=== PATIENT | male | born 1995 | race Two or more races ===

== ENCOUNTER 2022-02-26 21:51 | Emergency (ER) | payer MEDICAID, OTHER ==
[~2022-02-26] VITALS: Ht 177.8 cm; Wt 77.3 kg
[2022-02-26] MEDS ORDERED: OLAN10TA74 PO (22:03)
[2022-02-26] MEDS ORDERED: SERT-158 PO (22:03)
[2022-02-26 22:46] LABS: BASOPHILS % (AUTO) 0.8 % (0.0-2.0); EOSINOPHILS % (AUTO) 2.8 % (1.0-6.0); HEMATOCRIT 45.6 % (41-53); LYMPHOCYTES % (AUTO) 30.8 % (22.0-44.0); MEAN CORPUSCULAR HEMOGLOBIN 28.6 pg (26.0-34.0); MEAN CORPUSCULAR VOLUME 87 fL (80-100); MONOCYTES # (AUTO) 0.5 K/uL (0.1-1.0); MONOCYTES % (AUTO) 7.7 % (2.0-9.0); NEUTROPHILS # (AUTO) 3.8 K/uL (1.8-7.7); NEUTROPHILS % (AUTO) 57.9 % (40.0-70.0); PLATELET COUNT (AUTO) 230 K/uL (150-450); RED BLOOD CELL COUNT(AUTO) 5.26 MIL/uL (4.50-5.90); RED CELL DISTRIBUTION WIDTH 13.7 % (11.5-14.5)
[2022-02-26 22:56] LABS: ANION GAP 2 mmol/L (8-16); CALCIUM, TOTAL 9.3 mg/dL (8.8-10.5); CARBON DIOXIDE 33 mmol/L (22-29); CHLORIDE 101 mmol/L (98-107); CREATININE 0.85 mg/dL (0.60-1.30); GLUCOSE,RANDOM 78 mg/dL (70-110); POTASSIUM 4.4 mmol/L (3.5-5.1); SODIUM SERUM 136 mmol/L (136-145); UREA NITROGEN, BLOOD 17 mg/dL (7-18)
[2022-02-26 22:57] LABS: GLOMERULAR FILTR. RATE CALC > 60 mL/min (>60)
[2022-02-26 23:02] LABS: COVID AG,FIA SOURCE NASAL SWAB
[2022-02-26 23:02] LABS: ALANINE AMINOTRANSFERASE 22 U/L (12-78); ALBUMIN 3.9 g/dL (3.4-5.0); ALKALINE PHOSPHATASE 79 U/L (46-116); ASPARTATE AMINOTRANSFERASE 22 U/L (15-37); BILIRUBIN,TOTAL 0.2 mg/dL (0.1-1.0); LIPASE 156 U/L (73-393); TOTAL PROTEIN, SERUM 7.4 g/dL (6.4-8.2)
[2022-02-26 23:21] LABS: PROTHROMBIN TIME 10.2 SEC (9.4-11.6)
[2022-02-26 23:25] LABS: INFLUENZA TYPE A NEGATIVE FOR TYPE A (NEGATIVE); INFLUENZA TYPE B NEGATIVE FOR TYPE B (NEGATIVE)
[2022-02-27] MEDS ORDERED: METOCLOPRAMIDE HCL 5 MG/ML 2 ML VIAL IVP ONE
[2022-02-27] MEDS ORDERED: DiphenhydrAMINE HCL 50 MG/ML VIAL IVP ONE
[2022-02-27] MEDS ORDERED: KETOROLAC TROMETHAMINE 30 MG/ML VIAL IVP ONE
[2022-02-27] MEDS ORDERED: ACETAMINOPHEN 500 MG TABLET PO ONE
[2022-02-27] MEDS ORDERED: SODIUM CHLORIDE 0.9% 1,000 ML IV ONE
[2022-02-27 00:30] VITALS: BP 117/60
== END 2022-02-27 00:57 | disposition home or self-care (01) ==
LOC: EMS 21:52
DX: R51.9 Headache, unspecified (principal); R10.84 Generalized abdominal pain; F15.90 Other stimulant use, unspecified, uncomplicated; Z88.1 Allergy status to other antibiotic agents; Z20.822 Contact with and (suspected) exposure to COVID-19
CPT/HCPCS: 99284; 87426; 80053; 83690; 85025; 85610; 85730; 87804; 36415; 93005; 96374; 96361; 96375; J1200; J1885; J2765; J7030

== ENCOUNTER 2022-05-07 02:18 | Emergency (ER) | payer OTHER ==
[~2022-05-07] VITALS: Ht 170.2 cm; Wt 75.0 kg
[~2022-05-07 02:18] MED LIST: OLAN10TA74 PO; SERT-158 PO
[2022-05-07] MEDS ORDERED: LORazepam 1 MG TABLET PO ONE (03:30)
[2022-05-07 05:27] VITALS: BP 135/70
== END 2022-05-07 05:30 | disposition home or self-care (01) ==
LOC: EMS 02:19
DX: F41.9 Anxiety disorder, unspecified (principal); F15.10 Other stimulant abuse, uncomplicated
CPT/HCPCS: 99283

== ENCOUNTER 2022-09-03 05:08 | Inpatient (IN) | payer MEDICAID, OTHER ==
[~2022-09-03] VITALS: Ht 180.3 cm; Wt 61.9 kg
[2022-09-03 05:40] LABS: BASOPHILS % (AUTO) 0.8 % (0.0-2.0); EOSINOPHILS % (AUTO) 0.7 % (1.0-6.0); HEMATOCRIT 42.7 % (41-53); HEMOGLOBIN 14.4 g/dL (13.5-17.5); LYMPHOCYTES # (AUTO) 1.2 K/uL (1.0-4.8); LYMPHOCYTES % (AUTO) 17.4 % (22.0-44.0); MEAN CORPUSCULAR HGB CONC 33.8 G/dL (31.0-37.0); MEAN CORPUSCULAR VOLUME 86 fL (80-100); MONOCYTES # (AUTO) 0.4 K/uL (0.1-1.0); NEUTROPHILS # (AUTO) 5.2 K/uL (1.8-7.7); NEUTROPHILS % (AUTO) 75.1 % (40.0-70.0); PLATELET COUNT (AUTO) 223 K/uL (150-450); RED BLOOD CELL COUNT(AUTO) 4.98 MIL/uL (4.50-5.90); RED CELL DISTRIBUTION WIDTH 13.4 % (11.5-14.5)
[2022-09-03 05:49] LABS: ANION GAP 11 mmol/L (8-16); CARBON DIOXIDE 26 mmol/L (22-29); CHLORIDE 104 mmol/L (98-107); CREATININE 0.94 mg/dL (0.60-1.30); GLOMERULAR FILTR. RATE CALC > 60 mL/min (>60); GLUCOSE,RANDOM 103 mg/dL (70-110); POTASSIUM 3.3 mmol/L (3.5-5.1); SODIUM SERUM 141 mmol/L (136-145)
[2022-09-03 05:54] LABS: ALANINE AMINOTRANSFERASE 21 U/L (12-78); ALKALINE PHOSPHATASE 78 U/L (46-116); ASPARTATE AMINOTRANSFERASE 22 U/L (15-37); BILIRUBIN,TOTAL 0.5 mg/dL (0.1-1.0); TOTAL PROTEIN, SERUM 7.1 g/dL (6.4-8.2)
[2022-09-03 06:51] LABS: COVID AG,FIA SOURCE NASOPHARYNGEAL
[2022-09-03 11:34] VITALS: BP 118/65
[2022-09-03] MEDS: LORazepam 2 MG TABLET PO PRN (11:44)
[2022-09-03] MEDS ORDERED: HydrOXYzine PAMOATE 50 MG CAPSULE PO PRN (12:00)
[2022-09-03] MEDS ORDERED: ACETAMINOPHEN 325 MG TABLET PO PRN (12:00)
[2022-09-03] MEDS ORDERED: LOPERAMIDE HCL 2 MG CAPSULE PO PRN (12:00)
[2022-09-03] MEDS ORDERED: PALIPERIDONE PALMITATE 234 MG/1.5 ML SYRINGE IM ONE (12:00)
[2022-09-03] MEDS ORDERED: TUBERCULIN, PURIFIED PROTEIN DERIVATIVE 5 TU/0.1 ML SYRINGE ID ONE (12:00)
[2022-09-03] MEDS ORDERED: MAGNESIUM HYDROXIDE SUSPENSION 30 ML UDCUP PO PRN (12:00)
[2022-09-03] MEDS ORDERED: MAG HYDROX/AL HYDROX/SIMETH ES 30 ML SUSPENSION UDCUP PO PRN (12:00)
[2022-09-03] MEDS ORDERED: PROMETHAZINE HCL 25 MG TABLET PO PRN (12:00)
[2022-09-03] MEDS ORDERED: GuaiFENesin/D-METHORPHAN [SUGAR-FREE] 200-20MG/10 ML SYRUP UDCUP PO PRN (12:00)
[2022-09-03] MEDS: OLANZapine 5 MG RAPDIS TABLET PO PRN (12:34)
[2022-09-03 16:09] VITALS: BP 113/70
[2022-09-03 16:10] VITALS: BP 113/70
[2022-09-03] MEDS: THIAMINE 100 MG TABLET PO SCH (18:33)
[2022-09-03] MEDS: MELATONIN 5 MG TABLET PO SCH (20:30)
[2022-09-03] MEDS: OLANZapine 5 MG RAPDIS TABLET PO SCH (20:30)
[2022-09-03] MEDS ORDERED: POTASSIUM CHLORIDE 20 MEQ ER TABLET PO ONE (21:15)
[2022-09-03 22:00] VITALS: BP 103/67
[2022-09-04 06:57] LABS: ANION GAP 7 mmol/L (8-16); CALCIUM, TOTAL 8.9 mg/dL (8.8-10.5); CARBON DIOXIDE 28 mmol/L (22-29); CHLORIDE 105 mmol/L (98-107); CREATININE 0.84 mg/dL (0.60-1.30); GLOMERULAR FILTR. RATE CALC > 60 mL/min (>60); GLUCOSE,RANDOM 90 mg/dL (70-110); SODIUM SERUM 140 mmol/L (136-145)
[2022-09-04 06:58] LABS: HEMOGLOBIN A1C 5.6 % (3.8-5.6)
[2022-09-04 07:04] LABS: CHOL/HDL RATIO 2.8 (4.2-7.3); FREE T4 (FREE THYROXINE) 0.91 ng/dL (0.76-1.46); THYROID STIMULATING HORMONE 0.5 uIU/mL (0.36-3.74)
[2022-09-04] MEDS: MULTIVITAMINS WITH MINERALS, THERAPEUTIC TABLET PO SCH (08:33)
[2022-09-04] MEDS: FOLIC ACID 1 MG TABLET PO SCH (08:33)
[2022-09-04] MEDS: FLUoxetine HCL 20 MG CAPSULE PO SCH (08:33)
[2022-09-04] MEDS: NALTREXONE HCL 50 MG TABLET PO SCH (08:33)
[2022-09-04] MEDS: THIAMINE 100 MG TABLET PO SCH ×2 (08:33→16:16)
[2022-09-04] MEDS: OMEGA-3/DHA/EPA/FISH OIL 1,000 MG CAPSULE PO SCH (08:33)
[2022-09-04] MEDS: OLANZapine 5 MG RAPDIS TABLET PO SCH (20:25)
[2022-09-04] MEDS: MELATONIN 5 MG TABLET PO SCH (20:25)
[2022-09-04] MEDS: LORazepam 2 MG TABLET PO PRN (21:49)
[2022-09-05 07:06] LABS: HEPATITIS C AB (EIA) Non Reactive (Non Reactive)
[2022-09-05] MEDS: FLUoxetine HCL 20 MG CAPSULE PO SCH (08:03)
[2022-09-05] MEDS: NALTREXONE HCL 50 MG TABLET PO SCH (08:04)
[2022-09-05] MEDS: MULTIVITAMINS WITH MINERALS, THERAPEUTIC TABLET PO SCH (08:04)
[2022-09-05] MEDS: OMEGA-3/DHA/EPA/FISH OIL 1,000 MG CAPSULE PO SCH (08:04)
[2022-09-05] MEDS: THIAMINE 100 MG TABLET PO SCH ×2 (08:04→16:13)
[2022-09-05] MEDS: FOLIC ACID 1 MG TABLET PO SCH (08:05)
[2022-09-05 08:58] VITALS: BP 95/57
[2022-09-05] MEDS: LORazepam 2 MG TABLET PO PRN (20:30)
[2022-09-05] MEDS: OLANZapine 5 MG RAPDIS TABLET PO SCH (21:12)
[2022-09-05] MEDS: MELATONIN 5 MG TABLET PO SCH (21:12)
[2022-09-06] MEDS: NALTREXONE HCL 50 MG TABLET PO SCH (08:09)
[2022-09-06] MEDS: THIAMINE 100 MG TABLET PO SCH ×2 (08:09→16:08)
[2022-09-06] MEDS: MULTIVITAMINS WITH MINERALS, THERAPEUTIC TABLET PO SCH (08:09)
[2022-09-06] MEDS: FLUoxetine HCL 20 MG CAPSULE PO SCH (08:09)
[2022-09-06] MEDS: FOLIC ACID 1 MG TABLET PO SCH (08:09)
[2022-09-06] MEDS: OMEGA-3/DHA/EPA/FISH OIL 1,000 MG CAPSULE PO SCH (08:09)
[2022-09-06 08:22] VITALS: BP 96/68
[2022-09-06] MEDS ORDERED: PALIPERIDONE PALMITATE 234 MG/1.5 ML SYRINGE IM ONE (17:00)
[2022-09-06] MEDS: OLANZapine 10 MG RAPDIS TABLET PO SCH (20:12)
[2022-09-06] MEDS: MELATONIN 5 MG TABLET PO SCH (20:12)
[2022-09-07] MEDS: NALTREXONE HCL 50 MG TABLET PO SCH (08:11)
[2022-09-07] MEDS: MULTIVITAMINS WITH MINERALS, THERAPEUTIC TABLET PO SCH (08:11)
[2022-09-07] MEDS: FLUoxetine HCL 20 MG CAPSULE PO SCH (08:11)
[2022-09-07] MEDS: FOLIC ACID 1 MG TABLET PO SCH (08:11)
[2022-09-07] MEDS: THIAMINE 100 MG TABLET PO SCH ×2 (08:11→16:41)
[2022-09-07] MEDS: OMEGA-3/DHA/EPA/FISH OIL 1,000 MG CAPSULE PO SCH (08:11)
[2022-09-07 08:20] VITALS: BP 103/66
[2022-09-07] MEDS ORDERED: PALIPERIDONE PALMITATE 156 MG/ML SYRINGE IM ONE (09:00)
[2022-09-07] MEDS: OLANZapine 10 MG RAPDIS TABLET PO SCH (21:03)
[2022-09-07] MEDS: MELATONIN 5 MG TABLET PO SCH (21:03)
[2022-09-07] MEDS: ZOLPIDEM TARTRATE 10 MG TABLET PO PRN (21:54)
[2022-09-08] MEDS: NALTREXONE HCL 50 MG TABLET PO SCH (10:25)
[2022-09-08] MEDS: THIAMINE 100 MG TABLET PO SCH ×2 (10:27→17:33)
[2022-09-08] MEDS: OMEGA-3/DHA/EPA/FISH OIL 1,000 MG CAPSULE PO SCH (10:27)
[2022-09-08] MEDS: MULTIVITAMINS WITH MINERALS, THERAPEUTIC TABLET PO SCH (10:27)
[2022-09-08] MEDS: FLUoxetine HCL 20 MG CAPSULE PO SCH (10:27)
[2022-09-08] MEDS: FOLIC ACID 1 MG TABLET PO SCH (10:27)
[2022-09-08 10:56] VITALS: BP 99/71
[2022-09-08] MEDS: OLANZapine 5 MG RAPDIS TABLET PO PRN (14:53)
[2022-09-08] MEDS: LORazepam 2 MG TABLET PO PRN (14:53)
[2022-09-08] MEDS: OLANZapine 10 MG RAPDIS TABLET PO SCH (20:52)
[2022-09-08] MEDS: MELATONIN 5 MG TABLET PO SCH (20:52)
[2022-09-08] MEDS: ZOLPIDEM TARTRATE 10 MG TABLET PO PRN (21:45)
[2022-09-09] MEDS: OMEGA-3/DHA/EPA/FISH OIL 1,000 MG CAPSULE PO SCH (08:35)
[2022-09-09] MEDS: FLUoxetine HCL 20 MG CAPSULE PO SCH (08:36)
[2022-09-09] MEDS: MULTIVITAMINS WITH MINERALS, THERAPEUTIC TABLET PO SCH (08:36)
[2022-09-09] MEDS: THIAMINE 100 MG TABLET PO SCH ×2 (08:36→16:46)
[2022-09-09] MEDS: NALTREXONE HCL 50 MG TABLET PO SCH (08:37)
[2022-09-09] MEDS: FOLIC ACID 1 MG TABLET PO SCH (08:37)
[2022-09-09 10:02] VITALS: BP 108/65
[2022-09-09] MEDS ORDERED: OMEG-135 PO (15:56)
[2022-09-09] MEDS ORDERED: FLUO20CA36 PO (15:56)
[2022-09-09] MEDS ORDERED: OLAN10TA26 PO (15:56)
[2022-09-09] MEDS ORDERED: MELA5TAB40 PO (15:56)
[2022-09-09] MEDS ORDERED: NALT50TA PO (15:56)
[2022-09-10] MEDS ORDERED: PALIPERIDONE PALMITATE 156 MG/ML SYRINGE IM ONE (09:00)
== END 2022-09-09 17:48 | disposition left against medical advice (07) | DRG 750 ==
LOC: EMS 05:08 → 3EC 08:49
PROVIDERS: ADMIT Psychiatry & Neurology Psychiatry; ATTEND Psychiatry & Neurology Psychiatry
DX: F25.1 Schizoaffective disorder, depressive type (principal); R45.851 Suicidal ideations; E87.6 Hypokalemia; Z20.822 Contact with and (suspected) exposure to COVID-19; F17.200 Nicotine dependence, unspecified, uncomplicated; Z55.9 Problems related to education and literacy, unspecified; Z59.9 Problem related to housing and economic circumstances, unspecified; Z63.9 Problem related to primary support group, unspecified; Z65.3 Problems related to other legal circumstances; Z91.52 Personal history of nonsuicidal self-harm; Z53.29 Procedure and treatment not carried out because of patient's decision for other reasons
CPT/HCPCS: 80048; 80053; 80061; 80074; 83036; 84439; 84443; 85025; 86592; G0480; Q9967

== ENCOUNTER 2022-10-21 04:12 | Emergency (ER) | payer MEDICAID, OTHER ==
[~2022-10-21] VITALS: Ht 180.3 cm; Wt 59.1 kg
[~2022-10-21 04:12] MED LIST changes: +FLUO20CA36 PO; +MELA5TAB40 PO; +NALT50TA PO; +OLAN10TA26 PO; -OLAN10TA74 PO; +OMEG-135 PO; -SERT-158 PO
[2022-10-21 04:30] VITALS: BP 114/78; PULSE 91; RESP 18; TEMP 98.3
[2022-10-21] MEDS ORDERED: OLANZapine 5 MG TABLET PO ONE (04:45)
[2022-10-21 05:11] LABS: APPEARANCE,URINE CLEAR (CLEAR); BILIRUBIN,URINE NEGATIVE (NEGATIVE); GLUCOSE, URINE (UA) NEGATIVE (NEGATIVE); KETONES,URINE NEGATIVE (NEGATIVE); LEUKOCYTE ESTERASE ,URINE NEGATIVE (NEGATIVE); NITRATE,URINE NEGATIVE (NEGATIVE); OCCULT BLOOD,URINE NEGATIVE (NEGATIVE); PROTEIN,URINE TRACE mg/dL (NEGATIVE); SPECIFIC GRAVITIY, URINE 1.025 (1.003-1.030); UROBILINOGEN,URINE <=1.0 mg/dL (<=1.0)
[2022-10-21 05:19] LABS: AMPHET/METH SCREEN,URINE POSITIVE (NEGATIVE); BARBITURATE SCREEN, URINE NEGATIVE (NEGATIVE); BENZODIAZEPINES SCREEN,URINE NEGATIVE (NEGATIVE); CANNABINOID SCREEN,URINE NEGATIVE (NEGATIVE); COCAINE SCREEN,URINE NEGATIVE (NEGATIVE); METHADONE SCREEN, URINE NEGATIVE (NEGATIVE); OPIATE SCREEN,URINE NEGATIVE (NEGATIVE); PHENCYCLIDINE SCREEN,URINE NEGATIVE (NEGATIVE)
[2022-10-21 05:26] LABS: BACTERIA,URINE None Seen /HPF (None Seen); RBC,URINE None Seen /HPF (0-2); SQUAMOUS EPITHELIAL CELL,UR None Seen /LPF (None Seen); WBC,URINE None Seen /HPF (0-5)
== END 2022-10-21 05:23 | disposition left against medical advice (07) ==
LOC: EMS 04:13
DX: Z53.21 Procedure and treatment not carried out due to patient leaving prior to being seen by health care provider (principal)
CPT/HCPCS: 80307; 81001; 99281

== ENCOUNTER 2023-09-20 22:08 | Emergency (ER) | payer OTHER ==
[~2023-09-20] VITALS: Ht 182.9 cm; Wt 60.0 kg
[~2023-09-20 22:08] MED LIST changes: -NALT50TA PO; +NALT50TA6 PO
[2023-09-20 22:16] VITALS: BP 130/87; PULSE 66; RESP 20; TEMP 97.6
== END 2023-09-20 23:23 | disposition left against medical advice (07) ==
LOC: EMS 22:08
DX: F25.9 Schizoaffective disorder, unspecified (principal); F15.10 Other stimulant abuse, uncomplicated; F60.0 Paranoid personality disorder; F17.210 Nicotine dependence, cigarettes, uncomplicated
CPT/HCPCS: 99283